=== PATIENT | female | born 1985 | race African-American/Black ===

== ENCOUNTER 2018-01-18 17:57 | Emergency (ER) | payer SELFPAY ==
[~2018-01-18] VITALS: Ht 170.2 cm; Wt 117.2 kg
[2018-01-18 20:02] VITALS: BP 135/81
== END 2018-01-18 22:22 | disposition left against medical advice (07) ==
LOC: ER 17:57
DX: Z53.21 Procedure and treatment not carried out due to patient leaving prior to being seen by health care provider (principal)

== ENCOUNTER 2018-01-20 00:10 | Emergency (ER) | payer SELFPAY ==
[~2018-01-20] VITALS: Ht 170.2 cm; Wt 114.0 kg
[2018-01-20 03:46] VITALS: BP 149/93
== END 2018-01-20 06:39 | disposition home or self-care (01) ==
LOC: ER 00:10
DX: J02.9 Acute pharyngitis, unspecified (principal); Z87.442 Personal history of urinary calculi
CPT/HCPCS: 99283; Z7610

== ENCOUNTER 2018-07-13 15:33 | Emergency (ER) | payer SELFPAY ==
[~2018-07-13] VITALS: Ht 167.6 cm; Wt 120.0 kg
[2018-07-13] MEDS ORDERED: METR45CR TP (15:42)
[2018-07-13] MEDS ORDERED: SODIUM CHLORIDE 0.9% 1,000 ML IV ONE (16:27)
[2018-07-13] MEDS ORDERED: DIPHENHYDRAMINE 25MG CAPSULE PO ONE (16:30)
[2018-07-13] MEDS ORDERED: FAMOTIDINE 20MG/2ML VIAL IV ONE (16:30)
[2018-07-13] MEDS ORDERED: METHYLPREDNISOLONE SOD SUCC 125 MG/2 ML VIAL IV ONE (16:30)
[2018-07-13 16:53] LABS: BASOPHILS % 0.6 % (0.0-2.0); EOSINOPHILS % 1.7 % (0.0-5.0); HEMATOCRIT. 37.3 % (36.0-48.0); HEMOGLOBIN. 12.3 g/dL (12.0-16.0); LYMPHOCYTES % 45.9 % (20.0-50.0); MEAN CORPUSCULAR HEMOGLOBIN 27.8 pg (28.0-32.0); MEAN CORPUSCULAR VOLUME 84.1 fL (81.0-99.0); MEAN PLATELET VOLUME 7.3 fl (7.4-10.4); MONOCYTES % 11.2 % (2.0-8.0); NEUTROPHILS % 40.6 % (40.0-76.0); PLATELET 257 x1000/uL (130-400); RED BLOOD CELL COUNT 4.44 mill/uL (4.2-5.4); RED CELL DISTRIBUTION WIDTH 16.9 % (11.6-14.6)
[2018-07-13 17:04] LABS: CHLORIDE 105 mEq/L (98-107)
[2018-07-13 17:06] LABS: HCG SCREEN NEGATIVE
[2018-07-13 18:11] VITALS: BP 137/75
== END 2018-07-13 19:14 | disposition home or self-care (01) ==
LOC: ER 16:50
DX: R22.0 Localized swelling, mass and lump, head (principal); T37.3X5A Adverse effect of other antiprotozoal drugs, initial encounter; Y92.098 Other place in other non-institutional residence as the place of occurrence of the external cause; R22.1 Localized swelling, mass and lump, neck
CPT/HCPCS: 36415; 71045; 80053; 84443; 84703; 85025; 96374; 96375; 99285; J2930; J3490; J7030; Q0163